=== PATIENT | female | born 1990 | race African-American/Black ===

== ENCOUNTER → 2018-01-01 | Outpatient (CLI) | payer OTHER ==
--- NOTE | 2018-01-01 16:53 | CT ---
EXAMINATION TYPE: CT cervical spine wo con DATE OF EXAM: 01/01/2018 COMPARISON: NONE HISTORY: Neck pain after straining injury today CT DLP: 560 mGycm. Automated Exposure Control for Dose Reduction was Utilized. TECHNIQUE: CT scan of the cervical spine is obtained without contrast, axial images are obtained, sa gittal and coronal reformatted images are also reviewed. FINDINGS: Cervical spine is visualized in its entirety from C1 through upper thoracic levels, demonst rates loss of normal cervical curvature without evidence of acute fracture or dislocation. Preverteb ral soft tissue appears within normal limits. The C1-C2 articulation is within normal limits on the coronal images. Vertebral body heights and disc space heights are maintained. Spinal canal is preserved. No significa nt spurring is seen. Review of axial images shows no significant spinal canal stenosis or neural foraminal narrowing at an y cervical level. Thyroid gland is felt within normal limits. Visualized lung apices are clear. IMPRESSION: There is no acute fracture or dislocation evident in the cervical spine. Loss of normal cervical curvature could be product of patient positioning or underlying neck muscular spasm, correla te clinically.
== END | disposition home or self-care (01) ==
LOC: RADCTMAIN 16:36
PROVIDERS: ATTEND Emergency Medicine
DX: S13.4XXA Sprain of ligaments of cervical spine, initial encounter (principal)
CPT/HCPCS: 72125